=== PATIENT | female | born 1985 | race Caucasian/White ===

== ENCOUNTER 2023-09-10 08:41 | Emergency (ER) | payer BC ==
[2023-09-10 09:30] VITALS: BMI 28.1
[2023-09-10 11:02] LABS: HEMATOCRIT 41.1 % (32.4-45.2); HEMOGLOBIN 13.3 G/dL (10.7-15.3); MCH 29.2 pg (25.7-33.7); MCHC 32.3 g/dl (32.0-36.0); MEAN CELL VOLUME 90.4 fl (80-96); MEAN PLT VOLUME 8.3 fl (7.5-11.1); PLATELET COUNT 272.8 10^3/uL (134-434); RBC 4.55 10^6/uL (3.60-5.2); RDW 13.6 % (11.6-15.6); WHITE BLOOD COUNT 6.6 10^3/uL (4.0-10.8)
[2023-09-10 11:08] LABS: PROTHROMBIN TIME (PATIENT) 11.4 SEC (9.7-13.0)
[2023-09-10 11:09] LABS: ALBUMIN 4.5 g/dl (3.4-5.0); ALK PHOS 35 U/L (45-117); ANION GAP 6 mmol/L (4-13); BILIRUBIN,TOTAL 0.4 mg/dl (0.2-1); CALCIUM 9.7 mg/dl (8.5-10.1); CHLORIDE 105 mmol/L (98-107); CO2 27 mmol/L (21-32); CREATININE 0.7 mg/dl (0.6-1.3); GLUCOSE,RANDOM 93 mg/dl (74-106); POTASSIUM 4.3 mmol/L (3.5-5.1); SGOT/AST 21 U/L (15-37); SGPT/ALT 18 U/L (7-52); SODIUM 138 mmol/L (136-145); TOT PROT 6.9 g/dl (6.4-8.2)
[2023-09-10 11:33] LABS: HCG,QUALITATIVE URINE Negative
[2023-09-10 11:42] LABS: PLATELET ESTIMATE ADEQUATE
[2023-09-10 11:46] LABS: EPITHELIAL CELLS 0-5 /hpf
[2023-09-10] MEDS ORDERED: ACETAMINOPHEN INJECTION 100 ML IVPB ONE (11:49)
[2023-09-10 11:53] LABS: VENOUS BASE EXCESS -4.2 mmol/L (-2-2); VENOUS O2 SATURATION 33.4 % (70-80); VENOUS PCO2 43.2 mmHg (38-52); VENOUS PH 7.321 (7.310-7.410)
[2023-09-10] MEDS: ACETAMINOPHEN 1000 MG/100 ML BAG IVPB ONE (12:10)
[2023-09-10 13:21] VITALS: BP 110/62; PULSE 86; RESP 16; TEMP 98.5
== END 2023-09-10 13:24 | disposition short-term general hospital (02) ==
LOC: FER 08:41
PROC: 3E030NZ Introduction of Analgesics, Hypnotics, Sedatives into Peripheral Vein, Open Approach (ICD-10-PCS; principal; 2023-09-10)
DX: R07.9 Chest pain, unspecified (principal); R29.898 Other symptoms and signs involving the musculoskeletal system; R20.2 Paresthesia of skin; R06.02 Shortness of breath; Z20.822 Contact with and (suspected) exposure to COVID-19
CPT/HCPCS: 0241U-QW; 36415; 80053; 81003; 81015; 81025; 82550; 82803; 83735; 84484; 84703; 85027; 85610; 86850; 86900; 86901; 87491; 87591; 87661; 93005; 93010; 99285-25; J0131